=== PATIENT | male | born 1955 | race Caucasian/White ===

== ENCOUNTER 2023-09-07 12:34 | Outpatient (CLI) | payer MEDICARE, OTHER ==
[2023-09-07 13:45] LABS: #Eosinphils 0.2 10x3/uL (0.0-0.5); #Monocytes 0.5 10x3/uL (0.0-1.1); #Neutrophils 3.7 10x3/uL (1.5-8.4); %Basophils 0.7 % (0.0-2.0); %Eosinophils 3.5 % (0.0-6.0); %Lymphocytes 19.4 % (18.0-47.0); %Monocytes 8.5 % (0.0-10.0); %Neutrophils 67.5 % (40.0-75.0); Hematocrit 46.7 % (38.8-50.0); Hemoglobin 16.3 g/dL (13.5-17.5); Mean Corpuscular HGB CONC 34.9 g/dL (32.0-36.0); Mean Corpuscular Hemoglobin 29.6 pg (27.0-33.0); Mean Corpuscular Volume 84.9 fl (81.2-95.1); Mean Platelet Volume 10.7 fl (7.4-10.4); Platelet Count 196 10x3/uL (150-450); RBC Distribution Width 13.1 % (11.5-14.5); White Blood Cell (WBC) Count 5.4 10x3/uL (3.5-10.5)
[2023-09-07 13:55] LABS: Prothrombin Time 10.8 sec (9.5-12.1)
[2023-09-07 13:57] LABS: Anion Gap 12 mmol/L (10-20); BUN (Urea Nitrogen) 19 mg/dL (8.4-25.7); Calc. Creatinine Clearance 0 mL/min (70-130); Calcium 9.6 mg/dL (7.8-10.44); Carbon Dioxide 28 mmol/L (23-31); Chloride 100 mmol/L (98-107); Estimated GFR 80; Glucose 122 mg/dL (80-115); Potassium 4.1 mmol/L (3.5-5.1); Sodium 136 mmol/L (136-145)
== END 2023-09-07 12:35 | disposition home or self-care (01) ==
LOC: LABBT 12:34
PROVIDERS: ATTEND Orthopaedic Surgery
DX: Z01.812 Encounter for preprocedural laboratory examination (principal); M17.11 Unilateral primary osteoarthritis, right knee
CPT/HCPCS: 80048; 85025; 85610; 87081

== ENCOUNTER 2023-09-13 07:01 | Observation (INO) | payer MEDICARE, OTHER ==
[2023-09-07 13:00] VITALS: BMI 31.8
[2023-09-13] MEDS ORDERED: Tranexamic Acid 1,000 MG/10 ML VIAL ONE (07:45)
[2023-09-13] MEDS ORDERED: Vancomycin (BATCH) 1.5 GM/300 ML BAG ONE (07:45)
[2023-09-13] MEDS ORDERED: Sodium Chloride 0.9% 100 ML ONE ×2 (07:45→09:13)
[2023-09-13] MEDS ORDERED: fentaNYL 50 mcg/mL 1 mL Vial ONE ×4 (08:16→14:54)
[2023-09-13] MEDS ORDERED: Bupivacaine PF 0.5% 30 ML VIAL ONE (08:16)
[2023-09-13] MEDS ORDERED: Midazolam HCl 2 mg/2 ml Vial ONE (08:16)
[2023-09-13] MEDS ORDERED: Acetaminophen 500 MG TAB ONE (09:03)
[2023-09-13] MEDS ORDERED: EPINEPHrine 1 MG/ML VIAL ONE (09:13)
[2023-09-13] MEDS ORDERED: CEFAZOLIN 2 GM VIAL ONE (09:13)
[2023-09-13] MEDS ORDERED: Bupivacaine 0.25% HCL 30 ML VIAL ONE (09:13)
[2023-09-13] MEDS ORDERED: PROPOFOL 40 ML ONE (09:44)
[2023-09-13] MEDS ORDERED: Ondansetron PF 4 MG/2 ML Vial ONE (10:00)
[2023-09-13] MEDS ORDERED: Dexamethasone 4 mg/ml Vial ONE (10:00)
[2023-09-13] MEDS ORDERED: ePHEDrine Sulfate 50 MG/10 ML VIAL ONE (10:02)
[2023-09-13] MEDS ORDERED: PHENYLEPHRINE-NS 100 MCG/ML 10 ML SYRINGE ONE (10:02)
[2023-09-13] MEDS ORDERED: fentaNYL PF 100 MCG/2 ML SYRINGE ONE (10:10)
[2023-09-13] MEDS ORDERED: fentaNYL 50 mcg/mL 1 mL Vial SLOW IVP PRN (10:12)
[2023-09-13] MEDS ORDERED: Promethazine HCl 25 MG/ML VIAL IM PRN ×2 (10:15→11:59)
[2023-09-13] MEDS ORDERED: Zolpidem Tartrate 5 MG TAB PO PRN ×2 (10:15→11:59)
[2023-09-13] MEDS ORDERED: Ondansetron PF 4 MG/2 ML Vial IVP PRN ×2 (10:15→11:59)
[2023-09-13] MEDS ORDERED: Ropivacaine 0.2% 550 ML 550 ML NERVE BLCK SCH (10:15)
[2023-09-13] MEDS ORDERED: traMADol HCl 50 MG TAB PO PRN ×2 (10:15)
[2023-09-13] MEDS ORDERED: SUCCINYLCHOLINE/SOD CL,ISO/PF 200 MG/10 ML SYRINGE FS ONE (10:56)
[2023-09-13] MEDS ORDERED: Lidocaine 2% PF 5 ML VIAL ONE (11:16)
[2023-09-13] MEDS ORDERED: diphenhydrAMINE 25 MG CAP PO PRN (11:59)
[2023-09-13] MEDS ORDERED: Acetaminophen 325 MG TAB PO PRN (11:59)
[2023-09-13] MEDS ORDERED: Ketorolac Tromethamine 30 MG (1 mL) VIAL ONE (12:07)
[2023-09-13] MEDS: Ketorolac Tromethamine 30 MG (1 mL) VIAL IVP SCH (12:13)
[2023-09-13] MEDS ORDERED: HYDROmorphone 0.5 MG/0.5 ML SYRINGE ONE (13:17)
[2023-09-13] MEDS: Sodium Chloride 0.9% 1,000 ML IV SCH (17:12)
[2023-09-13] MEDS: CEFAZOLIN 2 GM in Sodium Chloride 0.9% 100 ML IVPB SCH (17:15)
[2023-09-13] MEDS: metFORMIN XR 500 MG ER.TAB PO SCH (17:20)
[2023-09-13] MEDS: Ferrous Gluconate 324 MG TAB PO SCH (20:46)
[2023-09-13] MEDS: Aspirin 81 mg Enteric Coated Tablet PO SCH (20:46)
[2023-09-13] MEDS: Donepezil HCl 10 MG TAB PO SCH (20:46)
[2023-09-13] MEDS: Losartan 25 MG TAB PO SCH (20:46)
[2023-09-13] MEDS: Amlodipine 5 MG TAB PO SCH (20:46)
[2023-09-13] MEDS: Senokot S 8.6-50 MG TAB PO SCH (20:47)
[2023-09-13] MEDS: HYDROcodone/Acetaminophen 10/325 mg Tablet PO PRN (20:50)
[2023-09-14 04:37] LABS: Hematocrit 38.2 % (42.0-52.0); Hemoglobin 12.8 g/dL (14.0-18.0); Mean Corpuscular HGB CONC 33.5 g/dL (32.0-36.0); Mean Corpuscular Hemoglobin 29.4 pg (27.0-31.0); Mean Corpuscular Volume 87.8 fl (78.0-98.0); Mean Platelet Volume 10.3 fL (7.4-10.4); Platelet Count 178 10x3/uL (130-400); RBC Distribution Width 13.4 % (11.5-14.5); Red Blood Cell (RBC) Count 4.35 mill/uL (4.70-6.10); White Blood Cell (WBC) Count 9.1 10x3/uL (4.8-10.8)
[2023-09-14 06:06] LABS: Anion Gap 12 mmol/L (10-20); BUN (Urea Nitrogen) 14 mg/dL (8.4-25.7); Calc. Creatinine Clearance 103 mL/min (70-130); Calcium 8.3 mg/dL (7.8-10.44); Carbon Dioxide 23 mmol/L (23-31); Chloride 105 mmol/L (98-107); Estimated GFR 83; Glucose 123 mg/dL (80-115); Magnesium 1.8 mg/dL (1.6-2.6); Potassium 3.9 mmol/L (3.5-5.1); Sodium 136 mmol/L (136-145)
[2023-09-14 07:54] VITALS: BP 114/62; TEMP 97.6
[2023-09-14] MEDS: HYDROcodone/Acetaminophen 10/325 mg Tablet PO PRN (09:12)
[2023-09-14] MEDS: Hydrochlorothiazide 25 MG TAB PO SCH (09:13)
[2023-09-14] MEDS: Multivitamin W/ Minerals 1 TAB PO SCH (09:14)
[2023-09-14 13:15] LABS: Hemoglobin A1c 6.1 % (4.0-6.0)
== END 2023-09-14 10:45 | disposition home or self-care (01) ==
LOC: SDC 07:01 → SURG A 15:21
PROVIDERS: ADMIT Orthopaedic Surgery; ATTEND Orthopaedic Surgery
PROC: 0SRC0JZ Replacement of Right Knee Joint with Synthetic Substitute, Open Approach (ICD-10-PCS; principal; 2023-09-13)
DX: M17.11 Unilateral primary osteoarthritis, right knee (principal); I10 Essential (primary) hypertension; F03.90 Unspecified dementia, unspecified severity, without behavioral disturbance, psychotic disturbance, mood disturbance, and anxiety; R73.03 Prediabetes; K21.9 Gastro-esophageal reflux disease without esophagitis; Z87.891 Personal history of nicotine dependence; Z79.899 Other long term (current) drug therapy
CPT/HCPCS: 27447; 73560; 80048; 82962 ×2; 83036; 83735; 85027; 97110 ×2; 97116 ×2; 97530; A4306; C1713; C1776; J0171; J3010; J3370; 36415; 36416; J0665; J1100; J1170; J1885; J2001; J2250; J2405; J2704; J2795; J3490; J7050

== ENCOUNTER 2024-02-21 08:59 | Outpatient (CLI) | payer MEDICARE, OTHER ==
[2024-02-21 10:04] LABS: #Basophils 0.07 10x3/uL (0.0-0.2); #Eosinphils 0.25 10x3/uL (0.0-0.5); %Basophils 1.4 % (0.0-2.0); %Eosinophils 5.1 % (0.0-6.0); %Lymphocytes 19.9 % (18.0-47.0); %Monocytes 10.1 % (0.0-10.0); %Neutrophils 62.9 % (40.0-75.0); Hematocrit 46.5 % (38.8-50.0); Hemoglobin 16.1 g/dL (13.5-17.5); Mean Corpuscular HGB CONC 34.6 g/dL (32.0-36.0); Mean Corpuscular Hemoglobin 29.9 pg (27.0-33.0); Mean Corpuscular Volume 86.3 fL (81.2-95.1); Mean Platelet Volume 10.4 fL (7.4-10.4); Platelet Count 216 10x3/uL (150-450); RBC Distribution Width 13.2 % (11.5-14.5); Red Blood Cell (RBC) Count 5.39 10x6/uL (4.32-5.72); White Blood Cell (WBC) Count 4.9 10x3/uL (3.5-10.5)
[2024-02-21 10:20] LABS: Prothrombin Time 11.2 sec (9.5-12.1)
[2024-02-21 10:29] LABS: Anion Gap 14 mmol/L (10-20); BUN (Urea Nitrogen) 14 mg/dL (8.4-25.7); Calc. Creatinine Clearance 0 mL/min (70-130); Calcium 9.8 mg/dL (7.8-10.44); Carbon Dioxide 27 mmol/L (23-31); Chloride 100 mmol/L (98-107); Estimated GFR 68; Glucose 125 mg/dL (80-115); Potassium 4.1 mmol/L (3.5-5.1); Sodium 137 mmol/L (136-145)
== END 2024-02-21 09:00 | disposition home or self-care (01) ==
LOC: LABBT 08:59
PROVIDERS: ATTEND Orthopaedic Surgery
DX: Z01.818 Encounter for other preprocedural examination (principal); M17.12 Unilateral primary osteoarthritis, left knee
CPT/HCPCS: 80048; 85025; 85610; 87081; 93005; 93010